=== PATIENT | female | born 1935 | race American Indian/Alaskan Native ===

== ENCOUNTER 2020-03-02 15:02 | Emergency (ER) | payer MEDICARE ==
[2020-03-02 15:57] VITALS: BP 198/56
--- NOTE | 2020-03-02 16:39 | Emergency Department Report ---
HPI - General Chief Complaint: Extremity Injury, Upper Time Seen by Provider: 03/02/20 16:04 - HPI HPI: 84-year-old female presents to the emergency department via EMS from her dialysis center after her left upper extremity shunt would not stop bleeding. They tried to hold pressure for about 1 hour but it would not stop bleeding so EMS was called. EMS placed a clamp over it and the patient presents without any current bleeding from the shunt. Otherwise she has no other complaints. She did complete her full dialysis session. She has a past medical history that includes DVT, diabetes, GERD, coronary artery disease, hypertension and the end-stage renal disease on hemodialysis on Monday/Monday/Monday. 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 ED Past Medical Hx - Past Medical History Previous Medical History?: Yes Hx Hypertension: Yes Hx Heart Attack/AMI: Yes Hx Congestive Heart Failure: No Hx Diabetes: Yes Hx Deep Vein Thrombosis: Yes Hx GERD: Yes Hx Renal Disease: Yes Hx Asthma: No Hx COPD: No - Surgical History Past Surgical History?: Yes Hx Coronary Stent: Yes Hx Open Heart Surgery: Yes Hx Cholecystectomy: Yes Hx Appendectomy: Yes Additional Surgical History: tonsillectomy. tubal ligation. open heart surgey - Social History Smoking Status: Never Smoker Substance Use Type: None - Medications Home Medications: Home Medications Medication Instructions Recorded Confirmed Last Taken Type Aspirin 325 mg PO QDAY 07/01/13 06/18/14 Unknown History Cyanocobalamin (Vitamin B-12) 1,000 mcg PO DAILY 07/01/13 06/18/14 Unknown History [Vitamin B-12] Meloxicam [Mobic] 7.5 mg PO QDAY #15 tablet 07/01/13 06/18/14 Unknown Rx Ranitidine HCl [Zantac] 150 mg PO QDAY 07/01/13 06/18/14 Unknown History Rosuvastatin (Nf) [Crestor] 20 mg PO QHS 07/01/13 06/18/14 Unknown History Sodium Bicarbonate 1,950 mg PO 4XD 07/01/13 06/18/14 Unknown History Terazosin(Nf) [Hytrin (Nf)] 2 mg PO QHS 07/01/13 06/18/14 Unknown History amLODIPine 10 mg PO DAILY 07/01/13 06/18/14 Unknown History glipiZIDE [glipiZIDE ER] 2.5 mg PO QAM 07/01/13 06/18/14 Unknown History hydrALAZINE [Apresoline TAB] 100 mg PO Q8H 07/01/13 06/18/14 Unknown History labetaloL [Labetalol 100mg TAB] 600 mg PO Q8HR 07/01/13 06/18/14 Unknown History lisinopriL [Zestril TAB] 5 mg PO QDAY 07/01/13 06/18/14 Unknown History Aspirin EC [Ecotrin] 325 mg PO QDAY 05/21/14 05/21/14 Unknown History Calcitriol 0.5 mcg PO DAILY 05/21/14 05/21/14 Unknown History Cyanocobalamin (Vitamin B-12) 250 mcg SL DAILY 05/21/14 05/21/14 Unknown History [Vitamin B-12] Esomeprazole Magnesium [NexIUM] 40 mg PO QDAY 05/21/14 05/21/14 Unknown History Multivitamin [Multi-Vitamin Daily] 1 each PO DAILY 05/21/14 05/21/14 Unknown History Nitroglycerin (Nf) [Nitrostat] 0.3 mg SL Q15MIN PRN 05/21/14 05/21/14 Unknown History Omeprazole [PriLOSEC] 20 mg PO QDAY 05/21/14 05/21/14 Unknown History Rosuvastatin (Nf) [Crestor] 20 mg PO QHS 05/21/14 05/21/14 Unknown History Sevelamer Carbonate [Renvela] 800 mg PO DAILY 05/21/14 05/21/14 Unknown History amLODIPine 10 mg PO DAILY 05/21/14 05/21/14 Unknown History glipiZIDE [Glucotrol] 5 mg PO QDAY 05/21/14 05/21/14 Unknown History hydrALAZINE [Apresoline TAB] 100 mg PO TID 05/21/14 05/21/14 Unknown History labetaloL [Labetalol 100mg TAB] 600 mg PO TID 05/21/14 05/21/14 Unknown History lisinopriL [Lisinopril] 40 mg PO BID 05/21/14 05/21/14 Unknown History ED Review of Systems ROS: Stated complaint: BLEEDING FROM DIALYSIS PORT Other details as noted in HPI Comment: All other systems reviewed and negative Constitutional: denies: chills, fever Respiratory: denies: cough, shortness of breath Cardiovascular: denies: chest pain, palpitations Gastrointestinal: denies: abdominal pain, vomiting Neurological: denies: headache, weakness Physical Exam - Physical Exam Vital Signs: Vital Signs 03/02/20 15:54 Temperature 97.5 F L Pulse Rate 64 Respiratory 16 Rate Blood Pressure 198/56 O2 Sat by Pulse 98 Oximetry Physical Exam: GENERAL: The patient is well-developed well-nourished. HENT: Normocephalic. Atraumatic. Patient has moist mucous membranes. EYES: Extraocular motions are intact. NECK: Supple. Trachea is midline. CHEST/LUNGS: Clear to auscultation. There is no respiratory distress noted. HEART/CARDIOVASCULAR: Regular. There is no tachycardia. SKIN: Skin is warm and dry. NEURO: The patient is awake, alert, and oriented. The patient is cooperative. Normal speech. MUSCULOSKELETAL: There is no tenderness or deformity. There is no evidence of acute injury. There is a patent left upper extremity dialysis shunt without any current bleeding. ED Course Vital Signs 03/02/20 15:54 Temperature 97.5 F L Pulse Rate 64 Respiratory 16 Rate Blood Pressure 198/56 O2 Sat by Pulse 98 Oximetry ED Medical Decision Making - Lab Data Result diagrams: 03/02/20 16:44 - Medical Decision Making This patient came in for evaluation after her left arm dialysis shunt would not stop bleeding after she finished her dialysis session. However it appears to have stopped by the time she arrived to the emergency department secondary to a clamp and/or pressure placed by EMS. The patient was in the emergency department for a little while without the clamp and there has been no return of any bleeding from the dialysis shunt. The shunt appears patent. A CBC was checked and the patient's hemoglobin was 11.7. She has some hypertension but otherwise vital signs have been stable throughout her ED course. She will be discharged home to follow-up with her primary care physician and continue with her normal dialysis regimen. Critical Care Time: No Critical care attestation.: If time is entered above; I have spent that time in minutes in the direct care of this critically ill patient, excluding procedure time. ED Disposition Clinical Impression: HTN (hypertension) Qualifiers: Hypertension type: essential hypertension Qualified Code(s): I10 - Essential (primary) hypertension Bleeding from dialysis shunt Qualifiers: Encounter type: initial encounter Qualified Code(s): T82.838A - Hemorrhage due to vascular prosthetic devices, implants and grafts, initial encounter Disposition: TO HOME OR SELFCARE Is pt being admited?: No Condition: Stable Instructions: Hypertension (ED) Additional Instructions: Please continue with your normal dialysis regimen. Take your blood pressure medications as prescribed. Return to the emergency department with any return of your shunt bleeding, or with any acute distress. Referrals: PRIMARY CARE, [Primary Care Provider] - 2-3 Days Time of Disposition: 17:19
[2020-03-02 17:05] LABS: Basophils % (Auto) 0.7 % (0.0-1.8); Eosinophils # (Auto) 0.2 K/mm3 (0.0-0.4); Eosinophils % (Auto) 2.5 % (0.0-4.3); Hematocrit 34.9 % (30.3-42.9); Hemoglobin 11.7 gm/dl (10.1-14.3); Lymphocytes # (Auto) 1.6 K/mm3 (1.2-5.4); Lymphocytes % (Auto) 22.1 % (13.4-35.0); Mean Corpuscular HGB Conc 34 % (30-34); Mean Corpuscular Volume 90 fl (79-97); Monocytes # (Auto) 0.8 K/mm3 (0.0-0.8); Monocytes % (Auto) 11.5 % (0.0-7.3); Platelet Count 107 K/mm3 (140-440); Red Blood Count 3.89 M/mm3 (3.65-5.03); Red Cell Distribution Width 17.8 % (13.2-15.2)
== END 2020-03-02 17:49 | disposition home or self-care (01) ==
LOC: ED 15:02
DX: T82.838A Hemorrhage due to vascular prosthetic devices, implants and grafts, initial encounter (principal); I10 Essential (primary) hypertension; I25.2 Old myocardial infarction; E11.9 Type 2 diabetes mellitus without complications; K21.9 Gastro-esophageal reflux disease without esophagitis; Z98.51 Tubal ligation status; Z98.890 Other specified postprocedural states; Z79.4 Long term (current) use of insulin; Z79.82 Long term (current) use of aspirin; Z79.899 Other long term (current) drug therapy; Z88.6 Allergy status to analgesic agent; Z88.4 Allergy status to anesthetic agent; Z88.8 Allergy status to other drugs, medicaments and biological substances
CPT/HCPCS: 36415; 85025; 99283